=== PATIENT | male | born 1975 ===

== ENCOUNTER → 2017-12-23 | Outpatient (CLI) | payer BC ==
[2017-12-23 11:12] LABS: LDL/HDL RATIO 1.2
[2017-12-23 11:13] LABS: CHOL/HDL RATIO 2.5; Cholesterol 144 mg/dL (50-200); HDL Cholesterol 58 mg/dL (>39); Low Density Lipoprotein Chol 68 mg/dL (0-110); Triglycerides 89 mg/dL (30-160); Very Low Density Lipoprot Chol 17 mg/dL (6-32)
[2017-12-24 21:07] LABS: CHLAMYDIA TRACHOMATIS, NAA Negative (Negative); NEISSERIA GONORRHOEAE, NAA Negative (Negative)
== END ==
LOC: LAB SHORT 10:20 → LAB 10:20
PROVIDERS: Nurse Practitioner
DX: N34.1 Nonspecific urethritis (principal)
CPT/HCPCS: 80061; 83036; 87491; 87591